=== PATIENT | female | born 1950 | race Two or more races ===

== ENCOUNTER 2021-11-04 09:50 | Inpatient (IN) | payer OTHER ==
[~2021-11-04] VITALS: Ht 157.5 cm; Wt 72.6 kg
[2021-11-21] MEDS ORDERED: LANTUS SOL100 UNIT/1 (15:06)
[2021-11-21] MEDS ORDERED: HUMULIN 70100 UNIT/1 (15:06)
[2021-11-21] MEDS ORDERED: EFFEXOR XR75 MG PO (15:06)
[2021-11-21] MEDS ORDERED: ADULT LOW DOSE81 M1 PO (15:07)
[2021-11-21] MEDS ORDERED: HYDROCHLOROTHIA25 MG PO (15:07)
[2021-11-25] MEDS ORDERED: ROPINIROLE HC0.25 MG (08:26)
[2021-11-25] MEDS ORDERED: MECLIZINE HCL12.5 MG (08:26)
[2021-11-25] MEDS ORDERED: GABAPENTIN800 M1 (08:26)
[2021-11-25] MEDS ORDERED: VENLAFAXINE HCL75 MG (08:26)
[2021-11-25] MEDS ORDERED: OMEPRAZOLE40 MG (08:26)
[2021-11-25] MEDS ORDERED: METOPROLOL SUCC50 MG (08:26)
[2021-11-25] MEDS ORDERED: JARDIANCE25 MG (08:26)
[2021-11-25] MEDS ORDERED: DONEPEZIL HCL10 MG (08:26)
[2021-11-25] MEDS ORDERED: ONDANSETRON HCL8 MG (08:27)
[2021-11-25] MEDS ORDERED: CLONAZEPAM2 MG (08:27)
[2021-11-25] MEDS ORDERED: HUMULIN 70100 UNIT/2 (08:27)
[2021-11-25] MEDS ORDERED: ALENDRONATE SOD70 MG (08:27)
[2021-11-25] MEDS ORDERED: RAMIPRIL5 MG (08:27)
[2021-11-25] MEDS ORDERED: DICLOFENAC SODI75 MG (08:27)
[2021-11-25] MEDS ORDERED: ATORVASTATIN CA40 MG (08:27)
[2021-11-25] MEDS ORDERED: SUCRALFATE1 GM (08:28)
[2021-11-25] MEDS ORDERED: MEDROLPACK PO (09:42)
[2021-11-25] MEDS ORDERED: AMOX-CLAV 875-1 EACH PO (09:42)
[2021-11-25] MEDS ORDERED: NEURONTIN800 MG PO (09:42)
[2021-11-25] MEDS ORDERED: COLACE100 MG PO (09:42)
[2021-11-25] MEDS ORDERED: ACETAMINOPHEN-1 EAC2 PO (09:42)
== END 2021-11-27 22:27 | disposition home or self-care (01) | DRG 455 ==
LOC: SURH 11-23 11:15 → O/R 11-25 06:04 → SURH 11-25 06:04
PROVIDERS: ADMIT Orthopaedic Surgery Orthopaedic Surgery of the Spine; ATTEND Orthopaedic Surgery Orthopaedic Surgery of the Spine
PROC: 0SG0071 Fusion of Lumbar Vertebral Joint with Autologous Tissue Substitute, Posterior Approach, Posterior Column, Open Approach (ICD-10-PCS; 2021-11-25)
PROC: 0ST20ZZ Resection of Lumbar Vertebral Disc, Open Approach (ICD-10-PCS; 2021-11-25)
PROC: 0QB30ZZ Excision of Left Pelvic Bone, Open Approach (ICD-10-PCS; 2021-11-25)
PROC: 07DR0ZZ Extraction of Iliac Bone Marrow, Open Approach (ICD-10-PCS; 2021-11-25)
PROC: 0SG00A0 Fusion of Lumbar Vertebral Joint with Interbody Fusion Device, Anterior Approach, Anterior Column, Open Approach (ICD-10-PCS; principal; 2021-11-25 22:15)
DX: M43.16 Spondylolisthesis, lumbar region (principal); M48.062 Spinal stenosis, lumbar region with neurogenic claudication; M51.36 Other intervertebral disc degeneration, lumbar region; E11.9 Type 2 diabetes mellitus without complications; I11.9 Hypertensive heart disease without heart failure; E78.5 Hyperlipidemia, unspecified